=== PATIENT | male | born 1980 | race African-American/Black ===

== ENCOUNTER 2021-06-12 04:42 | Day surgery (SDC) | payer OTHER ==
[2021-06-10 17:43] VITALS: BMI 36.4
[2021-06-12] MEDS ORDERED: LIDOCAINE HCL 2% JELLY 10 ML CARTRIDGE ONE (13:25)
[2021-06-12 13:53] VITALS: TEMP 97.1
[2021-06-12 14:20] VITALS: PULSE 54
[2021-06-13 07:45] VITALS: BP 138/80
== END 2021-06-12 14:20 | disposition home or self-care (01) ==
LOC: JASU-ENDO 04:42
PROVIDERS: ATTEND Internal Medicine Gastroenterology
PROC: 06LY4CC Occlusion of Hemorrhoidal Plexus with Extraluminal Device, Percutaneous Endoscopic Approach (ICD-10-PCS; principal; 2021-06-12 13:30)
DX: K62.5 Hemorrhage of anus and rectum (principal); K64.8 Other hemorrhoids